=== PATIENT | female | born 1990 | race Caucasian/White ===

== ENCOUNTER 2017-10-02 14:21 | Emergency (ER) | payer SELFPAY ==
[~2017-10-02] VITALS: Ht 167.6 cm; Wt 68.0 kg
--- NOTE | 2017-10-02 14:28 | NUR ---
CALLED THE PATIENT FOR TRIAGE, PATIENT IS NOT IN THE WAITING ROOM.
--- NOTE | 2017-10-02 14:40 | NUR ---
worsening tooth abscess (right lower molar) x yesterday. nad noted. pt aao x4, amb with steady gait. rr even and unlabored. pt currently states on abx x 4 days. at bedside for eval.
[2017-10-02] MEDS ORDERED: ONDANSETRON 4 MG TAB.RAPDIS ONE (15:14)
[2017-10-02] MEDS: ONDANSETRON 4 MG TAB.RAPDIS SL ONE (15:17)
[2017-10-02] MEDS: IV NS 0.9% 1,000 ML BAG IV ONE (15:17)
[2017-10-02] MEDS: PIPERACILLIN /TAZOBACTAM 3.375 G in IV D5W 50 ML IV ONE (15:30)
--- NOTE | 2017-10-02 15:45 | NUR ---
URINE OBTAINED. LAB CONTACTED FOR SPECIMEN [employer].
[2017-10-02] MEDS ORDERED: IOHEXOL-300 100 ML VIAL IV ONE (15:56)
[2017-10-02 17:19] VITALS: BP 128/72
== END 2017-10-02 17:21 | disposition home or self-care (01) ==
LOC: ER 14:23 → EDBD 14:23 → ER 17:21
DX: K05.219 Aggressive periodontitis, localized, unspecified severity (principal); L03.211 Cellulitis of face; F20.9 Schizophrenia, unspecified; F17.200 Nicotine dependence, unspecified, uncomplicated; Z60.2 Problems related to living alone
CPT/HCPCS: 70487-TC; 84703-TC; A4606; J2543; J7030; J7060; Q0162; Q9967; Z7610

== ENCOUNTER 2017-12-27 12:32 | Emergency (ER) | payer MEDICAID ==
[~2017-12-27] VITALS: Ht 167.6 cm; Wt 63.5 kg
[2017-12-27 12:32] VITALS: BP 109/69
== END 2017-12-27 13:05 | disposition home or self-care (01) ==
LOC: ER 12:35
DX: K04.7 Periapical abscess without sinus (principal); F17.200 Nicotine dependence, unspecified, uncomplicated; F20.9 Schizophrenia, unspecified; Z60.2 Problems related to living alone
CPT/HCPCS: 99283; A4606; Z7610

== ENCOUNTER 2018-09-06 16:43 | Emergency (ER) ==
[~2018-09-06] VITALS: Ht 167.6 cm; Wt 68.0 kg
[2018-09-06 16:54] VITALS: BP 124/70
[2018-09-06] MEDS ORDERED: IBUPROFEN 600 MG TABLET PO ONE ×2 (17:29→17:30)
--- NOTE | 2018-09-06 19:23 | NUR ---
Patient discharged to home in stable condition. Written and verbal after care instructions given. Patient verbalizes understanding of instruction. Pt ambulatory with a steady gait
== END 2018-09-06 19:24 | disposition home or self-care (01) ==
LOC: ER 16:43
DX: J02.9 Acute pharyngitis, unspecified (principal); F20.9 Schizophrenia, unspecified; F17.200 Nicotine dependence, unspecified, uncomplicated; Z60.2 Problems related to living alone
CPT/HCPCS: 86403-TC; 87070-TC